=== PATIENT | male | born 1990 | race Caucasian/White ===

== ENCOUNTER 2025-03-08 10:52 | Outpatient (AMB) | payer OTHER, SELFPAY ==
--- NOTE | 2025-03-08 10:54 | A.OFFPC_ITS ---
Vital Signs 03/08/25 11:00 03/08/25 11:35 03/08/25 11:41 Height 5 ft 11 in Weight 309 lb 8 oz BMI 43.2 BP 136/76 Blood Pressure Location Rt brachial Position Sitting Respiration 14 Pulse 113 H 108 H 90 Pulse Source Pulse Oximeter Auscultation Auscultation Temp 97.7 F Temp Source Oral Pulse Oximetry (%) 99 Oxygen Delivery Method Room Air Intake Visit Reasons: CPE, tetanus shot Intake Note: New patient to establish care and cpe Land Inspector Required: No Allergies No Known Allergies Allergy (Verified 03/08/25 11:25) Medication List - Last Reconciled 03/08/25 by CARTER Mullins No Known Home Meds Tobacco use date assessed: 03/08/25 Dental Screening Dental Screen Date: 03/08/25 Did you have a dental visit in the last 12 months?: No Did you have a dental problem in the last 6 months where you did not have access to dental care?: No Was dental information given to patient?: Patient declined HPI HPI Comments History of Present Illness Details Alexis 34 y/o M with obesity 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 He has not had a primary care physician recently and has not seen a doctor since a sports physical in high school. He reports feeling fine and is presenting because he recently obtained insurance. Obesity: - The patient has a past medical history of obesity with a current BMI of 43.2. 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 - He does not typically get flu shots. - He wears glasses for astigmatism and i s overdue for an eye exam by about two to three years. Past Medical History - Obesity, with a BMI of 43.2 - No chronic conditions during childhood , such as asthma - Astigmatism - No known drug allergies - No current medications Past Surgical History - No history of surgeries Family History - Mother: Alive, age 70, and healthy. - Father: Alive, no contact, but believe d to have no serious health problems. - Siblings: Four sisters and one brother , all alive and well. - Maternal grandfather: History of cance r of an unknown type. - No other known family history of cance r. 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 - Living Situation: Lives with his kaleb go. - Safety: Feels safe at home. - Family Planning: No children yet. - Diet: Reports an unrestricted diet. Health Maintenance - The patient has not had a primary care physician recently, with his last medical encounter being a sports physical in high school. - He is overdue for an eye exam by 2-3 y ears. - He denies receiving annual flu shots. - He agreed to screening labs for diabet es, cholesterol, liver disease, electrolyte abnormalities, anemia, thyroid disorder, and B12/vitamin D deficiencies. - A urine test will be done to screen fo r early kidney disease by checking for proteinuria. Review of Systems - Constitutional: Denies feeling weak or faint during blood draws. - HEENT: Wears glasses for astigmatism. Denies feeling of blockage in his ears. - GI: Reports normal bowel movements. De nies abdominal pain or tenderness. - : Reports normal urination. - Integumentary: Denies open sores or ra shes on his feet. Physical Exam General: Well developed, well nourished, in no acute distress. Appears stated age. Head: Normocephalic, atraumatic. Eyes: Pupils are equal, round and reactive to light and accommodation. Conjunctivae are clear. Scleras nonicteric bilat. Vision grossly normal. Patient wears glasses and reports astigmatism in the right eye. Ears: Right ear has wax buildup, left ear clear. TMs clear AU, EACS WNL. Nose: Patent, without discharge. Neck: No carotid bruit bilat. Supple, no adenopathy or thyromegaly. Breast: Edu on SBE. Lungs: Clear to auscultation bilaterally. No rales, rhonchi or wheeze noted. Good air flow in all marr. Heart: Regular rate and rhythm. No murmurs, click, rubs or gallops are noted. Pulse was slightly elevated initially but normalized during the exam. Abdomen: Bowel sounds present in all quadrants. The abdomen is soft, nontender, with no masses or organomegaly noted. No hernias are noted. : Deferred. Reviewed JUVE & recommendations Pulses: Peripheral pulses are equal and palpable bilaterally. Extremities: No clubbing, cyanosis nor edema is noted. No swelling in ankles. Neurologic: Gait and station normal. Cranial Nerves 2-12 intact. Motor strength grossly symmetrical and intact. No sensory loss. Balance normal. Skin: No rashes, ulcers, or lesions noted. Turgor is good. Skin color is good. Hair and nails are without abnormalities. Flat moles noted, uniform in appearance. Psych: Normal eye contact, affect and mood appropriate, and normal interactions. Patient is alert and appropriate to context. Results Pending Medical Decision Making The patient is a 34-year-old male with a history of obesity (BMI 43.2) presenting [facility] after a long interval without medical follow-up. He is asymptomatic and motivated by his new insurance coverage. The primary goals for this visit are health maintenance and screening. 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 Comprehensive screening labs, including blood and urine tests, were ordered to assess for common chronic conditions such as diabetes, dyslipidemia, and renal disease, which is particularly relevant given his obesity. A referral was made for a routine eye exam as he is overdue. On physical exam, a cerumen impaction was noted in the right ear, and the patient consented to an in-office ear lavage. His pulse was noted to be elevated, which may be related to anxiety about the visit, but his blood pressure was normal. The plan includes administering the Tdap vaccine, performing the ear lavage, and obtaining the screening labs today. The patient was instructed on how to sign up for the patient portal to receive his lab results and communicate with the office, and a follow-up appointment was scheduled in one year for a physical. Plan 1. 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 - Ordered screening labs including blood and urine tests to screen for diabetes, cholesterol, liver disease, electrolyte abnormalities, anemia, thyroid disorder, B12, and vitamin D levels, as well as kidney function. - Placed a referral to [facility] for an overdue eye exam. - The patient will have labs drawn today . - Scheduled a follow-up appointment in year for a physical. 2. Cerumen Impaction , Right - Cerumen impaction was identified in e right ear. - The patient consented to and will unde rgo an in-office ear lavage of the right ear today. Patient Instructions - You will receive a tetanus (Tdap) shot in your arm today. It is good for 10 years. Your arm may be sore for a day or two; moving the arm, such as by going to the gym, can help it feel better. - We will clean out the wax from your ri ght ear today. - Before you leave today, you will have blood and urine tests done here in the office. - Go to the service desk director after your proced ures to get your discharge paperwork. - The paperwork will have instructions o n how to sign up for our [employer] patient portal. You will get an email after this visit; open it and click the sign-in link within 24 hours to create your account. - Use the patient portal to send me mess ages if you are sick or need an appointment. This is the best way to contact me. - If I am not available and you need to be seen, you can go to our walk-in clinics in [place] or [place]. The locations will be on your paperwork. - Schedule your next physical exam for o year from now before you leave. - You will receive a referral for an eye exam at [facility]. Their office will call you to schedule, but you can also call them. - I will contact you with your lab resul ts, either through the portal or by mail. If there is anything abnormal, I will arrange for the necessary follow-up. Consent Verbal consent was obtained from the patient for screening blood and urine tests after discussing the purpose of the tests. He also provided verbal consent for an in-office lavage to remove cerumen impaction from his right ear. Patient was informed and verbally consented to the use of an ambient scribe for clinic note documentation during this visit. An additional 30 minutes was spent addressing the problem(s) noted at todays visit. This includes time spent before the visit reviewing the chart, time spent during the visit, and time spent after the visit on documentation reviewing laboratory results, diagnostic imaging, medications, performing a medically necessary evaluation, counseling on diagnoses, care coordination, ordering appropriate tests, ordering appropriate medications, review of tests performed by other providers, reporting test results with the patient, communication with other healthcare providers. [facility] Medical History (Updated 03/08/25 @ 11:42 by Richa Day [facility]) No pertinent past medical history Surgical History (Updated 03/08/25 @ 11:03 by Nadya Mckeon MA) No pertinent past surgical history Family History (Updated 03/08/25 @ 11:04 by Nadya Mckeon MA) Paternal Grandfather Cancer Social History (Updated 03/08/25 @ 11:02 by Nadya Mckeon MA) Household Members: Significant Other Both parents involved: No Caregiver staying overnight: No Housing: House Are you a primary restorative care technician to a significant other at home: Yes Do you presently have visiting nurse or other home services: No 75 years or older and lives alone: No Alcohol intake: never Patient Tobacco Use Status: Never used Tobacco Smoked in Last 30 Days: No e-Cigarette/Vaping Use: Never Used Second Hand Smoke Exposure: No Use of substances other than those prescribed or required for medical reasons: Yes Substance Use Type: Marijuana service: No Current occupational status: employed 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 1. Little interest or pleasure in doing things: not at all 2. Feeling down, depressed, or hopeless: not at all 3. Trouble falling or staying asleep, or sleeping too much: not at all 4. Feeling tired or having little energy: not at all 5. Poor appetite or overeating: not at all 6. Feeling bad about yourself - or that you are a failure or have let yourself or your family down: not at all 7. Trouble concentrating on things, such as reading the newspaper or watching television: not at all 8. Moving or speaking so slowly that other people could have noticed. Or the opposite - being so fidgety or restless that you have been moving around a lot more than usual: not at all 9. Thoughts that you would be better off or of hurting yourself in some way: not at all Total score: 0 Depression Screening Interpretation: Negative Depression Screening Done: Yes 10056 - PHQ-9 Billing: Yes Source: Developed by Drs. Rico Alvarez, Megan Ellis, Rich Finch and colleagues, with an educational kasandra from [employer]. Thrive Questionnaire Date Thrive assessed: 03/08/25 I am a: Patient What is your living situation today?: I have a steady place to live Within the past 12 months, did the food you bought not last and you didn't have the money to get more?: Never true Within the past 12 months, did you worry whether your food would run out before you got money to buy more?: Never true Do you have trouble paying for medicines?: No Do you have trouble getting transportation to medical appointments?: No Do you have trouble paying your heating and electricity bill?: No Do you have trouble taking care of your child, family member or friend?: No Do you have trouble with day-to-day activities such as bathing, preparing meals, shopping, managing finances, etc.?: No Are you currently unemployed and looking for a job?: No Are you interested in more education?: No Please select the resources that you would like help with: None Currently or been in a relationship where the following occur: No concerns reported THRIVE Score: 0 AUDIT C Alcohol Use Questionnaire (AUDIT-C) 1. How often do you have a drink containing alcohol?: Never 3. How often do you have six or more drinks on one occasion?: Never Total Score: 0 Score Reviewed/Action Taken: Yes YOLI-7 AMB Questionnaire YOLI-7 Date YOLI - 7 assessed: 03/08/25 Feeling nervous, anxious, or on edge: 0 = Not at all Not being able to stop or control worryin = Not at all Worrying too much about different things: 0 = Not at all Trouble relaxin = Not at all Being so restless that it is hard to sit still: 0 = Not at all Becoming easily annoyed or irritable: 0 = Not at all Feeling afraid as if something awful might happen: 0 = Not at all Total YOLI-7 score (0-4 normal; 5-9 mild; 10-14 moderate; 15-21 severe): 0 Source: Developed by Drs. Rico Alvarez, Megan Ellis, Rich Finch and colleagues, with an educational kasandra from [employer]. YOLI-7 Assessment Billing YOLI-7 Assessment Tool: YOLI-7 Assessment 96645 Physical exam (Primary Care) Vital Signs: Last Vital Signs Temp 97.7 F 03/08/25 11:00 Pulse 113 H 03/08/25 11:00 Resp 14 03/08/25 11:00 BP 136/76 03/08/25 11:00 Pulse Ox 99 03/08/25 11:00 Oxygen Delivery Method Room Air 03/08/25 11:00 BMI result Body Mass Index 43.2 BMI Assessment/Plan discussion: High Tobacco/Smoking Status: Tobacco use Status Tobacco use date assessed 03/08/25 03/08/25 10:57 Patient Tobacco Use Status Never used Tobacco 03/08/25 11:02 e-Cigarette/Vaping Use Never Used 03/08/25 11:02 PHQ-9: PHQ-9 Score PHQ-9: Total score 0 03/08/25 10:57 Depression Screening Interpretation: Negative Thrive Assessment: Date of Thrive Assessment Date Thrive assessed 03/08/25 03/08/25 10:57 Currently or been in a relationship where the following occur: No concerns reported Office Procedures Cerumen Removal From which ear canal was the cerumen removed: right Removal: irrigation Notes: patient tolerated procedure well, no complications and ear canal clear 25976-Ydp Irrigation/Lavage Coding Level of Care Code New Pt Level 3 (96098) New Pt Prev Care 18-39yr(52482 Diagnoses Encounter to establish care with new provider Z76.89 Obesity, morbid, BMI 40.0-49.9 E66.01 Need for Tdap vaccination Z23 Influenza vaccination declined Z28.21 Astigmatism H52.209 Impacted cerumen, right ear H61.21 Adult general medical exam Z00.00 Laboratory exam ordered as part of routine general medical examination Z00.00 CPT Codes Office Procedure - CPT: 55697-Skr Irrigation/Lavage ([id number]) Additional Codes YOLI-7 Assessment Billing - YOLI-7 Assessment Tool: OYLI-7 Assessment 46365 ([id number]) PHQ-9 - 16941 - PHQ-9 Billing: Yes ([id number]) Assessment & Plan Assessment & Plan (1) Encounter to establish care with new provider: Code(s): Z76.89 - Persons encountering health services in other specified circumstances (2) Obesity, morbid, BMI 40.0-49.9: Code(s): E66.01 - Morbid (severe) obesity due to excess calories Category: Medical (3) Need for Tdap vaccination: Onset Date: ~03/08/25 Code(s): Z23 - Encounter for immunization Category: Medical (4) Influenza vaccination declined: Onset Date: ~03/08/25 Code(s): Z28.21 - Immunization not carried out because of patient refusal Category: Medical (5) Astigmatism: Code(s): H52.209 - Unspecified astigmatism, unspecified eye Category: Medical (6) Impacted cerumen, right ear: Code(s): H61.21 - Impacted cerumen, right ear (7) Adult general medical exam: Onset Date: ~03/08/25 Code(s): Z00.00 - Encounter for general adult medical examination without abnormal findings Category: Medical (8) Laboratory exam ordered as part of routine general medical examination: Code(s): Z00.00 - Encounter for general adult medical examination without abnormal findings Category: Medical Plan . Orders: Orders Complete Blood Count no Diff Today Z00.00 - Encounter for general adult medical examination without abnormal findings Lipid Panel Today Z00.00 - Encounter for general adult medical examination without abnormal findings Vitamin B12 and Folate Today Z00.00 - Encounter for general adult medical examination without abnormal findings Vitamin D 25-OH Total Today Z00.00 - Encounter for general adult medical examination without abnormal findings Comprehensive Met. Panel Today Z00.00 - Encounter for general adult medical examination without abnormal findings Hemoglobin A1c Today Z00.00 - Encounter for general adult medical examination without abnormal findings Microalbumin, Random (w Creat) Today Z00.00 - Encounter for general adult medical examination without abnormal findings TSH reflex Free T4 Today Z00.00 - Encounter for general adult medical exam ination without abnormal findings TDaP Immunization Today Z23 - Encounter for immunization Referrals Ophthalmology Referral H52.209 - Unspecified astigmatism, unspecified eye Medications: New Boostrix Tdap (diphth,pertus(acell),tetanus) 0.5 mL IM ONCE 0.5 mL 0RF NS Z23 - Encounter for immunization Patient Instructions: Patient Instructions - You will receive a tetanus (Tdap) shot in your arm today. It is good for 10 years. Your arm may be sore for a day or two; moving the arm, such as by going to the gym, can help it feel better. - We will clean out the wax from your right ear today. - Before you leave today, you will have blood and urine tests done here in the office. - Go to the service desk director after your procedures to get your discharge paperwork. - The paperwork will have instructions on how to sign up for our [employer] patient portal. You will get an email after this visit; open it and click the sign-in link within 24 hours to create your account. - Use the patient portal to send me messages if you are sick or need an appointment. This is the best way to contact me. - If I am not available and you need to be seen, you can go to our walk-in clin ics in [place] or [place]. The locations will be on your paperwork. - Schedule your next physical exam for one year from now before you leave. - You will receive a referral for an eye exam at [facility]. Their office will call you to schedule, but you can also call them. - I will contact you with your lab results, either through the portal or by mail. If there is anything abnormal, I will arrange for the necessary follow-up. Walk-In Care (Urgent Care): We Make it Easy Walk-in for urgent medical issues such as: ? Seasonal Allergies ? Insect Bites ? Cough ? Diarrhea ? Acute Asthma Attacks ? Back, Knee or Joint Pain ? Ear Infection ? Fever without a Rash ? Headaches ? Nausea ? [place] [facility], Rash or Skin Irritation ? Sore Throat ? Sports Physicals ? Vomiting Most insurances are accepted. Patients do not need to be part of the [facility] to seek care at the walk-in clinic. Locations [address], [place] Open Saturday through Saturday 8am-5pm *Hours may vary due to staffing availability. To confirm Walk-In Care hours please call. [address], [place] [address] ? [phone] [facility]-In [facility] in [place] provides services to ages 18 and over. Open Saturday-Saturday: 7 a.m. to 5 p.m. and Saturday: 9 a.m. to 3 p.m.* *Hours may vary due to staffing availability. To confirm Walk-In Care hours in [place], please call [phone]. [address] [place] [address] ? [phone] [facility]In [facility] in [place] provides services to ages 12 and over. Open Saturday-Saturday: 8 a.m. to 5 p.m. Hours may vary due to staffing availability. To confirm Walk-In Care hours in [place], please call [phone]. LABORATORY SERVICES: [facility] ? Primary Location [address] [place] [address] Saturday through Saturday 6:00 AM ? 5:00 PM Saturday 7:00 AM ? 11:00 AM* [phone] The [facility] is centrally located near the front entrance of the [facility] for easy outpatient access. Convenient parking is provided for outpatients. *Hours may vary due to staffing availability. To confirm Laboratory hours for any location, please call [phone]. Offsite Location For your convenience, we offer offsite laboratory draw stations at the following locations: [address] [place] [address] ? [address], [address] Saturday through Saturday 7:30 AM ? 1:00 PM* [phone] *Hours may vary due to staffing availability. To confirm Laboratory hours for any location, please call [phone]. [place] ? [address] Saturday through Saturday 6:00 AM ? 3:30 PM* Saturday 6:30 AM ? 3 PM* [phone] *Hours may vary due to staffing availability. To confirm Laboratory hours for any location, please call [phone] [place] [address] Saturday through Saturday 7:30 AM ? 4:00 PM* [phone] *Hours may vary due to staffing availability. To confirm Laboratory hours for any location, please call [phone] [place] [address] Saturday through 9:00 AM ? 4:00 PM* *Hours may vary due to staffing availability. To confirm Laboratory hours for any location, please call [phone]. Appointments are not necessary. Walk-ins are welcome. Like all the departments throughout the [facility], our Lab undergoes frequent reviews to ensure the quality and accuracy of test results, and our staff takes special pride in its status as a nationally accredited facility. Patient Portal: [facility] ONE PATIENT. ONE RECORD. BETTER CARE. [facility] has a fully integrated, cutting- edge mobile electronic health information system that has revolutionized the way we care for our patients and manage our organization. This system improves communication and coordination enabling us to provide safe, higher-quality care, and an overall positive experience for staff and patients. Our first priority, as always, is to deliver the highest quality care possible. The system is running in the background supporting that priority. This portal is for all [facility] and [facility] services and practices. If you are experiencing any technical difficulties with enrolling or logging i nto the Patient Portal please complete the [facility] Patient Portal Technical Support Form. [facility] now offers a new secure on-line interactive tool for patients to review their health information ? ?Patient Portal. This interactive web portal will enable patients and their families to take an active role in their care by providing easy, secure access to their he alth information via the internet. The Patient Portal provides patients with instant access to their health information, including laboratory results, medications, allergies, demographic information, visit history, and more. In addition to managing their own care, parents and health care proxies with authorized consent will appreciate the ability to access the records of those individuals for whom they provide care. Please note: if you wish to gain access (Proxy) to another patient?s portal, you will be required to come to the Medical Records Department in person at [facility]. Both the patient giving proxy access and the proxy will need to provide photo identification and complete the appropriate authorization. The Patient Portal also allows track their appointments online. The [facility] Patient Portal also saves patients time by allowing them to submit updates to their demographic and contact information prior to their visits. Portal email notifications will also alert patients to any new activity on their portal, such as test results and new appointments. In order to initially enroll in the [facility] Patient Portal, you will need to enter some required information including the following: * your [facility] Medical Record number * your personal home email address * name * date of Please note: In order to enroll in the [facility] Patient Portal, we need to have your email address on file in your electronic medical record. ?The email address needs to be specific for one person (yourself) in order for your Portal enrollment to be successful. ?You can update your email address in person with our Registration staff when you are registering for a hospital visit. ?Otherwise, you will need to come to the Health Information Management (Medical Records) Department at [facility]. ?We are open from Saturday ? Saturday from 7:30 a.m. ? 4:30 p.m. ?You will be required to present a photo id. Once you have successfully enrolled in the Patient Portal, you will receive a one-time user id and password for the Portal, sent to your email address. ?This will allow you to log into the Patient Portal within 99 hrs and reset your own logon id and password, and define personal security questions. ?Once your permanent login and password have been set, you can log into the [facility] Patient Portal at any time via the blue button above or from the Portal Logon button on any page of the [facility] website. [facility] encourage all of our patients to enroll in Patient Portal as it presents a valuable opportunity for patients and their families to actively participate in their care and stay healthy Welcome to [facility]. ?We look forward to working with you. Health screenings for men You should visit your health care provider regularly, even if you feel healthy. The purpose of these visits is to: Screen for medical issues Assess your risk for future medical problems Encourage a healthy lifestyle Update vaccinations and other preventive care services Help you get to know your provider in case of an illness Information Even if you feel fine, you should still see your provider for regular checkups. These visits can help you avoid problems in the future. For example, the only way to find out if you have high blood pressure is to have it checked regularly. High blood sugar and high cholesterol level also may not have any symptoms in the early stages. Simple blood tests can check for these conditions. There are specific times when you should see your provider or receive specific health screenings. The [place] Preventive Services Task Force publishes a list of recommended screenings. Below are screening guidelines for men ages 40 to 64. BLOOD PRESSURE SCREENING Have your blood pressure checked at least once every year. Watch for blood pressure screenings in your area. Ask your provider if you can stop in to have your blood pressure checked. Ask your provider if you need your blood pressure checked more often if: You have diabetes, heart disease, kidney problems, or are overweight or have certain other health conditions You have a first-degree relative with high blood pressure You are Black Your blood pressure top number is from 120 to 129 mm Hg, or the bottom number is from 70 to 79 mm Hg If the top number is 130 mm Hg or greater or the bottom number is 80 mm Hg or greater, this is considered stage 1 hypertension. Schedule an appointment with your provider to learn how you can lower your blood pressure. Effects of age on blood pressure CHOLESTEROL SCREENING Cholesterol screening should begin at age 35 for men with no known risk factors for coronary heart disease. Repeat cholesterol screening should take place: Every 5 years for men with normal cholesterol levels More often if changes occur in lifestyle (including weight gain and diet) More often if you have diabetes, heart disease, kidney problems, or certain other conditions COLORECTAL CANCER SCREENING If you are under age 45, talk to your provider about getting screened. You may need to be screened if you have a strong family history of colon cancer or polyps. Screening may also be considered if you have risk factors such as a history of inflammatory bowel disease or polyps. If you are age 45 to 75, you should be screened for colorectal cancer. There are several screening tests available: A stool-based fecal occult blood (gFOBT) or fecal immunochemical test (FIT) every year A stool sDNA test every 1 to 3 years Flexible sigmoidoscopy every 5 years or every 10 years with stool testing FIT done every year CT colonography (virtual colonoscopy) every 5 years Colonoscopy every 10 years You may need a colonoscopy more often if you have risk factors for colorectal cancer, such as: Ulcerative colitis A personal or family history of colorectal cancer A history of growths in your colon called adenomatous polyps DENTAL EXAM Go to the dentist once or twice every year for an exam and cleaning. Your den tist will evaluate if you have a need for more frequent visits. DIABETES SCREENING All adults who do not have risk factors for diabetes should be screened starting at age 35 and repeated every 3 years. If you have other risk factors for diabetes, such as a first degree relative with diabetes, overweight or obesity, high blood pressure, prediabetes, or a history of heart disease, you may be tested more often. If you are overweight and have other risk factors, such as high blood pressure and are planning to become , screening is recommended. EYE EXAM Have an eye exam every 2 to 4 years ages 40 to 54 and every 1 to 3 years ages 55 to 64. Your provider may recommend more frequent eye exams if you have vision problems or glaucoma risk. Have an eye exam that includes an examination of your retina (back of your eye) at least every year if you have diabetes. IMMUNIZATIONS Commonly needed vaccines include: Flu shot: get one every year COVID-19 vaccine: ask your provider what is best for you Tetanus-diphtheria and acellular pertussis (Tdap) vaccine: have as one of your tetanus-diphtheria vaccines if you did not receive it as an adolescent Tetanus-diphtheria: have a booster (or Tdap) every 10 years Varicella vaccine: receive 2 doses if you never had chickenpox or the varicella vaccine and were born in 1979 or after Hepatitis B vaccine: receive 2, 3, or 4 doses, depending on your exact circumstances, if you did not receive these as a child or adolescent, until age 59 Shingles (herpes zoster) vaccine: at or after age 50 Ask your provider if you should receive other immunizations, especially if you have certain medical conditions, such as diabetes or are at increased risk for some diseases such as pneumonia. INFECTIOUS DISEASE SCREENING Screening for hepatitis C: all adults ages 18 to 79 should get a one-time test for hepatitis C. Screening for human immunodeficiency virus (HIV): all people ages 15 to 65 should get a one-time test for HIV. Depending on your lifestyle and medical history, you may need to be screened for infections such as syphilis, chlamydia, and other infections. LUNG CANCER SCREENING You should have an annual screening for lung cancer with low-dose computed tomography (LDCT) if: You are age 50 to 80 years AND You have a 20 pack-year smoking history AND You currently smoke or have quit within the past 15 years OSTEOPOROSIS SCREENING If you are age 50 to 64 and have risk factors for osteoporosis, you should discuss screening with your provider. Risk factors can include long-term steroid use, low body weight, smoking, heavy alcohol use, having a fracture after age 50, or a family history of hip fracture or osteoporosis. Osteoporosis PHYSICAL EXAM All adults should visit their provider from time to time, even if they are hea lthy. The purpose of these visits is to: Screen for diseases Assess risk of future medical problems Encourage a healthy lifestyle Update vaccinations and other preventive care services Maintain a relationship with a provider in case of an illness Your height, weight, and body mass index (BMI) should be checked at every exam. During your exam, your provider may ask you about: Depression and anxiety Diet and exercise Alcohol and tobacco use Safety, such as use of seat belts and smoke detectors Your medicines and risk for interactions PROSTATE CANCER SCREENING If you're 55 through 69 years old, before having the test, talk to your provider about the pros and cons of having a PSA test. Ask about: Whether screening decreases your chance of dying from prostate cancer. Whether there is any harm from prostate cancer screening, such as side effects from testing or overtreatment of cancer when discovered. Whether you have a higher risk of prostate cancer than others. If you are age 55 or younger, screening is not generally recommended. You should talk with your provider about if you have a higher risk for prostate cancer. Risk factors include: Having a family history of prostate cancer (especially a brother or father) Being If you choose to be tested, the PSA blood test is repeated over time (yearly or less often), though the best frequency is not known. Prostate examinations are no longer routinely done on men with no symptoms. Prostate cancer SKIN EXAM Your provider may check your skin for signs of skin cancer, especially if you're at high risk. People at high risk include those who have had skin cancer before, have close relatives with skin cancer, or have a weakened immune system. TESTICULAR EXAM The [place] Preventive Services Task Force (USPSTF) now recommends against performing testicular self-exams. Doing testicular self-exams has been shown to have little to no benefit.
[2025-03-08 11:00] VITALS: BP 136/76; PULSE 113; RESP 14; TEMP 36.5; O2SAT 99; BMI 43.2
[2025-03-08 11:35] VITALS: PULSE 108
[2025-03-08 11:41] VITALS: PULSE 90
== END 2025-03-08 11:50 | disposition home or self-care (01) ==
LOC: HO.HMCFM 10:53
PROVIDERS: PCP Nurse Practitioner Family; Visit Provider Nurse Practitioner Family
DX: Z00.00 Encounter for general adult medical examination without abnormal findings (principal); E66.01 Morbid (severe) obesity due to excess calories; Z68.41 Body mass index [BMI] 40.0-44.9, adult; H61.21 Impacted cerumen, right ear; H52.201 Unspecified astigmatism, right eye; Z23 Encounter for immunization

== ENCOUNTER → 2025-03-08 10:52 | Outpatient (BNVA) | payer OTHER, SELFPAY | PROVIDERS: PCP Nurse Practitioner Family; Visit Provider Nurse Practitioner Family | DX: Z00.00 Encounter for general adult medical examination without abnormal findings (principal); Z23 Encounter for immunization; Z76.89 Persons encountering health services in other specified circumstances; H61.21 Impacted cerumen, right ear; H52.209 Unspecified astigmatism, unspecified eye; E66.01 Morbid (severe) obesity due to excess calories; Z68.41 Body mass index [BMI] 40.0-44.9, adult | CPT/HCPCS: 69209; 90471; 90715; 96127 ==

== ENCOUNTER 2025-03-13 11:09 | Outpatient (REF) | payer OTHER, SELFPAY ==
--- OUTSIDE RECORDS SUMMARY | 2025-03-13 11:13 | XMS_ITS | Clinical Summary ---
Author Organization 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 Not on radha e 07/30/2022 Are you concerned about learning? Not on file 07/30/2022 No 07/30/2022 No 07/30/2022 Digital Access Answer Date Recorded No 08/21/2022 No 08/21/2022 Reliable internet access at home? Not on file 08/21/2022 Device with a working camera? Not on file Sex and Gender Information Value Date Recorded Sex Assigned at Not on file Legal Sex Male 2:28 PM EDT Gender Identity Not on file Sexual Orientation Not on file Last Filed Vital Signs Vital Sign Reading Time Taken Comments Blood Pressure 126/80 08/06/2022 1:56 PM EDT Pulse 82 08/06/2022 1:56 PM EDT Temperature 36.4 C (97.6 F) 08/06/2022 1:56 PM EDT Respiratory Rate 18 08/06/2022 1:56 PM EDT Oxygen Saturation 98% 08/06/2022 1:56 PM EDT Inhaled Oxygen Concentration - - Weight 136.1 kg (300 lb) 08/06/2022 1:56 PM EDT Height 180.3 cm (5' 11 ) 08/06/2022 1:56 PM EDT Body Mass Index 41.84 08/06/2022 1:56 PM EDT Plan of Treatment Health Maintenance Due Date Last Done Comments Adult Td,Tdap Booster 1989 LIPID PANEL 1989 DEPRESSION SCREENING 2001 SMOKING Hx and SMOKELESS TOB ACCO SCREENING 2002 HEPATITIS C SCREENING 2007 HIV ONE-TIME SCREENING (18-6 5 YEARS) 2007 SCREENING FOR DIABETES 2024 INFLUENZA VACCINE (#1) 2024 COVID-19 VACCINE ( - 2024-2 6 season) 2024 HEPATITIS A VACCINES Aged Out No long er eligible based on patient's age to complete this topic HIB VACCINES Aged Out No longer eligi ble based on patient's age to complete this topic MENINGOCOCCAL VACCINES (ACWY) Aged Out No longer eligible based on patient's age to complete this topic MENINGOCOCCAL VACCINES (B) Aged Out N o longer eligible based on patient's age to complete this topic PNEUMOCOCCAL VACCINES (0-49 years) Aged Out No longer eligible based on patient's age to complete this topic Medical Devices Not on file Insurance [employer] Care Teams Early Childhood Teacher Assistant Relationship Specialty Start Date End Date Pcp, Unknown PCP - General 07/30/22 Additional Source Comments The information contained in this document represents components of the legal health record. It is not the complete legal health record.[facility]
[2025-03-13 13:49] LABS: Hematocrit 44.8 % (42.0-52.0); Hemoglobin 15.5 g/dl (14.0-18.0); Mean Corpuscular HGB Conc 34.6 g/dl (31.0-36.0); Mean Corpuscular Hemoglobin 30.2 pg (27.0-33.0); Mean Corpuscular Volume 87.3 fL (80.0-98.0); NRBC Abs Auto 0.000 X10*3/uL (0.0-0.012); NRBC Pct Auto 0.0 /100WBC (0.0-0.2); Platelet Count 318 X10*3/uL (160-400); Red Blood Count 5.13 X10*6/uL (4.60-5.80); White Blood Count 6.7 X10*3/uL (4.8-10.8)
[2025-03-13 14:10] LABS: Alanine Aminotransferase 45 U/L (0-40); Albumin Level 4.6 g/dL (3.5-5.0); Alkaline Phosphatase 62 U/L (39-117); Anion Gap 13 (12-20); Aspartate Amino Transferase 40 U/L (5-37); Blood Urea Nitrogen 14 mg/dL (9-16); Calcium 9.5 mg/dL (8.4-10.2); Carbon Dioxide 26 mmol/L (22-29); Chloride 105 mmol/L (96-108); Cholesterol 162 mg/dL (<200); Estimated Glomerular Filt Rate > 60; HDL Cholesterol 40 mg/dL (>40); Potassium 4.0 mmol/L (3.3-5.1); Sodium 140 mmol/L (135-145); Total Protein 7.4 g/dL (6.5-8.0); Triglycerides 127 mg/dL (<150)
[2025-03-13 14:29] LABS: Microalbum/Creatinine Ratio Ur 3.6 ug/mg cr (<30)
[2025-03-13 14:41] LABS: Folate 10.5 ng/mL (> or = 4.0); Vitamin B12 686 pg/mL (200-900)
== END 2025-03-13 11:10 | disposition home or self-care (01) ==
LOC: HO.HMGCLDS 11:09
PROVIDERS: PCP Nurse Practitioner Family; Visit Provider Nurse Practitioner Family
DX: Z00.00 Encounter for general adult medical examination without abnormal findings (principal); Z13.0 Encounter for screening for diseases of the blood and blood-forming organs and certain disorders involving the immune mechanism; Z13.29 Encounter for screening for other suspected endocrine disorder; Z13.1 Encounter for screening for diabetes mellitus; Z13.21 Encounter for screening for nutritional disorder; Z13.6 Encounter for screening for cardiovascular disorders
CPT/HCPCS: 36415; 80053; 80061; 82043; 82306; 82570; 82607; 82746; 83036; 84443; 85027